=== PATIENT | female | born 1940 | race Caucasian/White ===

== ENCOUNTER 2022-08-09 10:21 | Outpatient (CLI) | payer MEDICARE, OTHER | END 2022-08-09 10:22 | disposition home or self-care (01) | LOC: CSHMAMMO 10:21 | PROVIDERS: ATTEND Internal Medicine | DX: Z12.31 Encounter for screening mammogram for malignant neoplasm of breast (principal); M81.0 Age-related osteoporosis without current pathological fracture; E78.00 Pure hypercholesterolemia, unspecified; M85.88 Other specified disorders of bone density and structure, other site | CPT/HCPCS: 77063; 77067; 77080 ==

== ENCOUNTER 2023-09-10 11:39 | Outpatient (CLI) | payer MEDICARE, OTHER | END 2023-09-10 11:40 | disposition home or self-care (01) | LOC: CSHMAMMO 11:39 | PROVIDERS: ATTEND Internal Medicine | DX: Z12.31 Encounter for screening mammogram for malignant neoplasm of breast (principal) | CPT/HCPCS: 77063; 77067 ==

== ENCOUNTER 2024-10-21 09:57 | Outpatient (CLI) | payer MEDICARE, OTHER | END 2024-10-21 09:58 | disposition home or self-care (01) | LOC: CSHMAMMO 09:57 | PROVIDERS: ATTEND Internal Medicine | DX: Z12.31 Encounter for screening mammogram for malignant neoplasm of breast (principal) | CPT/HCPCS: 77063; 77067 ==

== ENCOUNTER 2024-12-01 08:53 | Outpatient (CLI) | payer MEDICARE, OTHER ==
[2024-12-01] MEDS ORDERED: Iopamidol 300 61% 100 ML VIAL FS ONE (10:38)
== END 2024-12-01 08:54 | disposition home or self-care (01) ==
LOC: CSHCT 08:53
PROVIDERS: ATTEND Internal Medicine Hematology & Oncology
DX: M54.2 Cervicalgia (principal); C83.09 Small cell B-cell lymphoma, extranodal and solid organ sites; C83.398 Diffuse large B-cell lymphoma of other extranodal and solid organ sites; R91.1 Solitary pulmonary nodule; J98.4 Other disorders of lung; M48.54XA Collapsed vertebra, not elsewhere classified, thoracic region, initial encounter for fracture; M48.56XA Collapsed vertebra, not elsewhere classified, lumbar region, initial encounter for fracture
CPT/HCPCS: 70491; 71260